=== PATIENT | female | born 1970 | race Caucasian/White ===

== ENCOUNTER 2018-03-19 23:02 | Emergency (ER) | payer BC ==
[~2018-03-19] VITALS: Ht 165.1 cm; Wt 80.0 kg
[2018-03-20 00:52] LABS: HEMATOCRIT 41.6 % (36.0-46.0); HEMOGLOBIN 14.1 G/DL (11.9-15.5); MCH 30.5 PG (29.0-34.0); MCHC 33.9 G/DL (30.0-36.0); PLATELET COUNT 260 K/uL (156-360); RBC DIS.WIDTH-CV 12.8 % (11.8-14.6); RBC DIS.WIDTH-SD 41.9 % (39-53); RED BLOOD COUNT 4.62 M/uL (3.80-5.20)
[2018-03-20 01:29] LABS: QUANTITATIVE HCG < 4.0 MIU/ML
[2018-03-20] MEDS ORDERED: ZOFRAN ODT4 MG PO (01:31)
[2018-03-20] MEDS ORDERED: FIORICET 50-301 EAC1 PO (01:31)
[2018-03-20 01:51] LABS: ALBUMIN 4.3 G/DL (3.2-4.8); ALKALINE PHOSPHATASE 48 IU/L (3-129); ALT (GPT) 25 IU/L (3-49); AST (GOT) 38 IU/L (2-34); CHLORIDE 107 MEQ/L (99-109); CREATININE 0.8 MG/DL (0.6-1.3); GFR ESTIMATE (CALCULATED) > 59 mL/min/; GLUCOSE 95 mg/dL (70-99); POTASSIUM 5.4 MEQ/L (3.7-5.4); SODIUM 137 MEQ/L (136-147); TOTAL PROTEIN 6.9 G/DL (6.4-8.3); UREA NITROGEN (BUN) 10 mg/dL (9-23)
[2018-03-20 02:01] VITALS: BP 118/68
== END 2018-03-20 02:02 | disposition home or self-care (01) ==
LOC: EME 23:02
PROVIDERS: Physician Assistant
DX: F07.81 Postconcussional syndrome (principal); E78.5 Hyperlipidemia, unspecified
CPT/HCPCS: 70450; 80053; 84702; 85027; 99281; 99285; J1200; J2765; J7030